=== PATIENT | female | born 1990 | race Caucasian/White ===

== ENCOUNTER 2022-05-29 07:00 | Outpatient (RCR) | payer BC, SELFPAY ==
--- NOTE | 2022-05-08 10:00 | HP.PTEVAL_ITS ---
Patient's Visit Information JA FUENTES is a 32 year old F referred to Physical Therapy by CURTIS GUERRERO with a diagnosis of PATELLA TENDINITIS LEFT KNEE. Date of Evaluation: 05/08/22 Physical Therapist: Jw Kern, PT, Cert MDT, OCS - Visit Plan Frequency: 2x /Week Duration: 4 Weeks Plan: PT INTERVETIONS FLEXABLITY ,HIP FLEXORS/PIRIFORMIS, FOAM ROLLING, STRENGTHENING QUADS/HAMS/HIP, PATIENT EDUCATION, AND SPORT SIMULATION,POSSIBLE RUNNING ANYLYSIS AND MODALTIES PRN - Subjective This 35 y/o female physical therapy with patella tendonitis right. Patient has had knee pain for ~ 1month . Patient would start running okay then progressively worse throughout day . Noticed achy at night . Pain stopped running 2 weeks but noticed more pain during running. Patient was running in all surfaces treadmill ,dirt and asphalt. Patient had severe ankle sprain 2020 , and neuroma left foot. Patient uses insert orthotics over counter. Patient had pain at worst during running just on feet walking ,elevating from chair, squats ,stairs and kneeling. Patient seen PA prednisone 6 days ,hold off running 3weeks. Patient plan see orthopedic DR Zarate May 12. Denies paresthesia/tingling. Patient had multiple x- rays . Patient also using peloton. Patient is sleeping better . Goal running ,trail running and active. SOCAIL: . VOCATION: Dentist - Objective POSTURE: slight genu varum ,arch type normal ,. GAIT: normal david. NEURO: denies paresthesia/tingling. PALAPTION: unremarkable. SYMMETRIES: align. MMT: quads/hams 5/5 ,hip flexion 5/5,hip abduction 4/5,Glut max 4/5,ankle 5/5. FLEXABLILTY: hamstrings WFL,I-T BAND WFL ,HIP FLEXORS MOD TIGHT - Special Tests R Knee Nneka - Meniscus: Negative R Knee Apley - Meniscus: Negative R Knee Mk - ACL: Negative R Knee Anterior Drawer - ACL: Negative R Knee Posterior Drawer - PCL: Negative R Knee Posterior Sag - PCL: Negative R Knee Valgus - MCL: Negative R Knee Varus - LCL: Negative R Knee Patellar Apprehension - PFS: Negative R Knee Patellar Grind - PFS: Negative - Balance/Special Test Scores Lower Extremity Functional Score: 56 - Goals Goal 1:: Patient to be I with HEP to manage knee Goal Time Frame: 4-6 Weeks Goal 2:: Patient to demonstrate 80% improvement with improved running without pain Goal Time Frame: 4-6 Weeks Goal 3:: Patient to improve LFES score by 5 points to improve running Goal Time Frame: 4-6 Weeks Goal 4:: Patient gradually return running without symptoms 90% Goal Time Frame: 4-6 Weeks - Rehabilitation Potential Physical Therapy Diagnosis: This patient has left knee pain from running 4 weeks ago which progressively worse rest and prednisone better but unable to return to running without pain thus benefit from skilled PT Rehabilitation Potential: Good - Anticipated Interventions Patient/Client Instruction: Educate patient on: Condition, Plan of Care For the Purpose of:: To decrease pain, To increase ROM, To increase tolerance to activity/condition/position, To decrease level of supervision to perform tasks, To improve ability of physical actions for home/community/work/leisure, To increase flexibility/ROM, To improve balance, To reduce risk of recurrence, To prevent re-injury, Other Other: RUNNING Therapeutic Exercise to Include: Strength training, Endurance training, Balance training, Flexibilty training For the Purpose of:: To decrease pain, To increase ROM, To improve muscle performance and motor function, To increase tolerance to activity/condition/position, To improve ability of physical actions for home/community/work/leisure, To increase flexibility/ROM, To reduce risk of recurrence, To prevent re-injury, Other Other: RUNNING TENS: Yes IF ES: Yes Cryotherapy (ice pack, ice massage): Yes Thermo therapy (hot pack): Yes For the Purpose of:: To decrease pain, To improve nutrient delivery to tissue, To increase oxygenation perfusion, To improve health of tissue, To decrease soft tissue restriction Thank you for the opportunity to evaluate your patient. For Medicare and Medicare HMO plans, please review the plan of care and approve it. It will need to be FAXED BACK to us at [phone] for Medicare purposes. For Medicare only, by signing this I certify the plan of care. Please let me know if there are questions or concerns regarding this plan of care. Physician Signature:_ Date:
--- NOTE | 2022-09-11 10:25 | HP.PT.NRP ---
JA FUENTES was seen in my office for initial evaluation on 05/08/22. The following Plan of Care was established for this patient: Initial Frequency: 2x /Week Initial Duration: 4 Weeks Patient/Client Instruction: Educate patient on: Condition, Plan of Care For the Purpose of:: To decrease pain, To increase ROM, To increase tolerance to activity/condition/position, To decrease level of supervision to perform tasks, To improve ability of physical actions for home/community/work/leisure, To increase flexibility/ROM, To improve balance, To reduce risk of recurrence, To prevent re-injury, Other Other: RUNNING Therapeutic Exercise to Include: Strength training, Endurance training, Balance training, Flexibilty training For the Purpose of:: To decrease pain, To increase ROM, To improve muscle performance and motor function, To increase tolerance to activity/condition/position, To improve ability of physical actions for home/community/work/leisure, To increase flexibility/ROM, To reduce risk of recurrence, To prevent re-injury, Other Other: RUNNING TENS: Yes IF ES: Yes Cryotherapy (ice pack, ice massage): Yes Thermo therapy (hot pack): Yes For the Purpose of:: To decrease pain, To improve nutrient delivery to tissue, To increase oxygenation perfusion, To improve health of tissue, To decrease soft tissue restriction This patient was last seen in our office . Pertinent comments regarding their Physical therapy will appear below: Patient seen patella tendonitis with US and HEP At this point I will be discontinuing this patient from physical therapy. I would be happy to see this patient again in the future if found appropriate by the physician. Thank you! Jw Kern, PT, Cert MDT, OCS Balance/Gait/Functional tests - Balance/Special Test Scores Lower Extremity Functional Score: 56
== END 2022-05-29 19:00 | disposition home or self-care (01) ==
LOC: PT 07:00
PROVIDERS: PCP Nurse Practitioner Primary Care
DX: M76.51 Patellar tendinitis, right knee (principal)
CPT/HCPCS: 97035; 97110; 97161

== ENCOUNTER → 2024-04-03 | Outpatient (CLI) | payer BC, SELFPAY ==
--- NOTE | 2024-04-03 08:00 | MRI_ITS ---
STUDY: MRI LEFT ANKLE WITHOUT CONTRAST REASON FOR EXAM: Female, 34 years old. LIGAMENT SPRAIN; PAIN LOWER LEG TECHNIQUE: Standardized fat and water weighted pulse sequences were obtained in all 3 orthogonal planes. COMPARISON: Left ankle radiographs dated 04/29/2008. FINDINGS: Normal subcutis adipose space. There is mild posterior tibialis tenosynovitis. Intact posterior tibialis tendon. Normal flexor digitorum longus tendon. Normal flexor hallucis longus tendon. Normal peroneus longus and brevis tendons. Normal tibialis anterior tendon. Normal extensor hallucis longus tendon. Normal extensor digitorum longus tendons. Normal Achilles tendon and teno-osseous insertion. Normal plantar fascia. Normal plantar calcaneal tubercles. Normal intrinsic muscles of the rearfoot. Normal distal tibiofibular syndesmotic ligamentous complex. There is scarring with thickening of the anterior talofibular ligament consistent with a remote sprain. Normal subtalar ligaments and sinus tarsi. There is a deltoid ligament sprain with marrow stress edema in the medial malleolus and medial talar body (coronal T2 series 8 images 28-30). Normal plantar calcaneonavicular (spring) ligament. There are small tibiotalar and posterior subtalar joint effusions. Normal talar dome. Normal talonavicular articulation. Normal calcaneocuboid articulation. Normal navicular-cuneiform articulations. MRI/Lower Ext Joint Only (Routine) IMPRESSION: Deltoid ligament sprain with marrow stress edema in the medial malleolus and medial talar body. Remote sprain of the anterior talofibular ligament. Mild posterior tibialis tenosynovitis. Small tibiotalar and posterior subtalar joint effusions. Electronically Signed: Venancio Valencia MD at 13:41 EDT ,
== END | disposition home or self-care (01) ==
PROVIDERS: PCP Nurse Practitioner Primary Care; Referring Provider Student in an Organized Health Care Education/Training Program; Visit Provider Student in an Organized Health Care Education/Training Program
DX: S93.402A Sprain of unspecified ligament of left ankle, initial encounter (principal); M79.662 Pain in left lower leg
CPT/HCPCS: 73721

== ENCOUNTER 2024-06-09 06:46 | Outpatient (RCR) | payer SELFPAY | END 2024-06-09 19:00 | disposition home or self-care (01) | LOC: PT 06:46 | PROVIDERS: PCP Nurse Practitioner Primary Care | DX: M76.30 Iliotibial band syndrome, unspecified leg (principal) ==